=== PATIENT | male | born 1995 | race African-American/Black ===

== ENCOUNTER 2016-07-15 21:29 | Emergency (ER) | payer SELFPAY ==
[~2016-07-15] VITALS: Ht 172.7 cm; Wt 95.0 kg
[~2016-07-15 21:29] MED LIST: RANI150 PO
[2016-07-15 21:30] VITALS: BP 167/118; PULSE 120; RESP 18; TEMP 98.1; O2SAT 99
[2016-07-15] MEDS ORDERED: SODIUM CHLOR 0.9% 1000 ML INJ 1,000 ML IV SCH (21:55)
[2016-07-15] MEDS ORDERED: SODIUM CHLORIDE 0.9% FLUSH 5 ML FLUSH IVF PRN (22:00)
[2016-07-15] MEDS ORDERED: MORPHINE SULFATE 8 MG/ML INJ IV PUSH ONE (22:00)
[2016-07-15] MEDS ORDERED: ALUMINUM/MAGNESIUM/SIMETH 30 ML CUP PO ONE (22:00)
[2016-07-15] MEDS ORDERED: LIDOCAINE VISCOUS 2% SOLN 15 ML UDC PO ONE (22:00)
[2016-07-15] MEDS ORDERED: ONDANSETRON HCL 4 MG/2 ML VIAL IVP ONE (22:00)
[2016-07-15 22:52] LABS: AUTOMATED NEUTROPHIL # 8.2 TH/MM3 (1.8-7.7); BASOPHIL % 0.3 % (0.0-2.0); EOSINOPHIL # 0.1 TH/MM3 (0-0.4); EOSINOPHIL % 0.7 % (0.0-4.0); HEMATOCRIT 51.3 % (39.0-51.0); HEMO FLAGS DIFF FINAL; LYMPH % 17.2 % (9.0-44.0); LYMPHOCYTE # 2.1 TH/MM3 (1.0-4.8); MEAN CELL VOLUME 80.8 FL (80.0-100.0); MEAN CORPUSCULAR HEMOGLOBIN 28.1 PG (27.0-34.0); MEAN CORPUSCULAR HGB CONC 34.8 % (32.0-36.0); MONO % 15.8 % (0.0-8.0); PLATELET COUNT 363 TH/MM3 (150-450); RED BLOOD COUNT 6.35 MIL/MM3 (4.50-5.90); RED CELL DISTRIBUTION WIDTH 14.1 % (11.6-17.2); WHITE BLOOD COUNT 12.4 TH/MM3 (4.0-11.0)
[2016-07-15] MEDS ORDERED: DICY10 PO (22:55)
[2016-07-15] MEDS ORDERED: ZOFR4TAB3 SL (22:55)
--- NOTE | 2016-07-15 22:56 | PD ---
HPI Chief Complaint: GI Complaint Time Seen by Provider: 21:44 Travel History International Travel<30 days: No Contact w/Intl Traveler<30days: No Traveled to known affect area: No History of Present Illness HPI 20-year-old male arrives complaining of abdominal pain and vomiting for about 3 days. His last oral intake prior to onset of nausea and vomiting was pizza which she did not think was spoiled/wasted. He has had hematemesis, speckles of blood in his emesis, for 3 days. He has had no diarrhea. Positive flatus reported. Decreased oral intake reported. It is difficult to find a comfortable position. He denies fever. Evidently a similar episode occurred in the past and resolved spontaneously however was less severe. [facility] Past Medical History Medical History: Denies Significant Hx Blood Disorders: No Cancer: No Cardiovascular Problems: No Diminished Hearing: No Endocrine: No Genitourinary: No Immune Disorder: No Musculoskeletal: Yes Neurologic: No Psychiatric: No Reproductive: No Respiratory: No Tetanus Vaccination: Unknown Influenza Vaccination: No Past Surgical History Other Surgery: Yes (surgery on wrist, growth removed from head) Social History Alcohol Use: Yes (occ) Tobacco Use: Yes (06/19 PPD) Substance Use: Yes (MARIJUANA) Allergies-Medications (Allergen,Severity, Reaction): Coded Allergies: No Known Allergies (Unverified , 07/15/16) Reported Meds & Prescriptions Reported Meds & Active Scripts Active Zofran Odt (Ondansetron Odt) 4 Mg Tab 4 Mg SL Q8HR PRN Bentyl (Dicyclomine HCl) 10 Mg Cap 10 Mg PO TID PRN Review of Systems Except as stated in HPI: all other systems reviewed are Neg Physical Exam Narrative GENERAL: 20-year-old male well-nourished well-developed mild distress SKIN: Warm and dry. HEAD: Atraumatic. Normocephalic. EYES: Pupils equal and round. No scleral icterus. No injection or drainage. ENT: No nasal bleeding or discharge. Mucous membranes pink and moist. NECK: Trachea midline. No JVD. CARDIOVASCULAR: Mild tachycardia regular rhythm.. RESPIRATORY: No accessory muscle use. Clear to auscultation. Breath sounds equal bilaterally. GASTROINTESTINAL: Soft. No tenderness at McBurney's point. Negative Hdz sign. MUSCULOSKELETAL: No obvious deformities. No clubbing. No cyanosis. No edema. NEUROLOGICAL: Awake and alert. No obvious cranial nerve deficits. Motor grossly within normal limits. Normal speech. PSYCHIATRIC: Appropriate mood and affect; insight and judgment normal. Data Data Last Documented VS Vital Signs Date Time Temp Pulse Resp B/P Pulse Ox O2 Delivery O2 Flow Rate FiO2 07/15/16 21:30 98.1 120 18 167/118 99 Vital signs reviewed blood pressure 142/90 at 10:50 PM and heart rate is 98 Orders Complete Blood Count With Diff (07/15/16 21:55) Comprehensive Metabolic Panel (07/15/16 21:55) Lipase (07/15/16 21:55) Iv Access Insert/Monitor (07/15/16 21:55) Ecg Monitoring (07/15/16 21:55) Oximetry (07/15/16 21:55) Ondansetron Inj (Zofran Inj) (07/15/16 22:00) Sodium Chlor 0.9% 1000 Ml Inj (Ns 1000 M (07/15/16 21:55) Sodium Chloride 0.9% Flush (Ns Flush) (07/15/16 22:00) Morphine Inj (Morphine Inj) (07/15/16 22:00) Al-Mag Hy-Si 40-40-4 Mg/Ml Liq (Mag-Al P (07/15/16 22:00) Lidocaine 2% Viscous (Xylocaine 2% Visco (07/15/16 22:00) Labs Laboratory Tests Test 07/15/16 22:00 White Blood Count 12.4 TH/MM3 Red Blood Count 6.35 MIL/MM3 Hemoglobin 17.9 GM/DL Hematocrit 51.3 % Mean Corpuscular Volume 80.8 FL Mean Corpuscular Hemoglobin 28.1 PG Mean Corpuscular Hemoglobin 34.8 % Concent Red Cell Distribution Width 14.1 % Platelet Count 363 TH/MM3 Mean Platelet Volume 9.9 FL Neutrophils (%) (Auto) 66.0 % Lymphocytes (%) (Auto) 17.2 % Monocytes (%) (Auto) 15.8 % Eosinophils (%) (Auto) 0.7 % Basophils (%) (Auto) 0.3 % Neutrophils # (Auto) 8.2 TH/MM3 Lymphocytes # (Auto) 2.1 TH/MM3 Monocytes # (Auto) 2.0 TH/MM3 Eosinophils # (Auto) 0.1 TH/MM3 Basophils # (Auto) 0.0 TH/MM3 CBC Comment DIFF FINAL Differential Comment Sodium Level 133 MEQ/L Potassium Level 3.3 MEQ/L Chloride Level 93 MEQ/L Carbon Dioxide Level 27.4 MEQ/L Anion Gap 13 MEQ/L Blood Urea Nitrogen 17 MG/DL Creatinine 1.29 MG/DL Estimat Glomerular Filtration 84 ML/MIN Rate Random Glucose 102 MG/DL Calcium Level 9.8 MG/DL Total Bilirubin 0.7 MG/DL Aspartate Amino Transf 23 U/L (AST/SGOT) Alanine Aminotransferase 31 U/L (ALT/SGPT) Alkaline Phosphatase 97 U/L Total Protein 9.2 GM/DL Albumin 4.7 GM/DL Lipase 83 U/L [facility] Medical Decision Making Medical Screen Exam Complete: Yes Emergency Medical Condition: Yes Medical Record Reviewed: Yes Differential Diagnosis Constipation, Gastritis, Acute Cholecystitis, Biliary Colic, Pancreatitis, KEE , Hepatitis, Bowel Obstruction, Cystitis, Mesenteric Ischemia, AAA, Appendicitis , Renal Stone/Hydronephrosis, GERD, perforated viscous Narrative Course CBC & BMP Diagram 07/15/16 22:00 LFTs and lipase normal Upon reassessment at 11:45 PM the patient is resting comfortably and feels better, is alert and in no distress. The patients results and examination findings were discussed. The repeat examination is unremarkable and benign. The history, exam, diagnostic testing, and current condition do not suggest any significant pathology to warrant further testing, continued ED treatment, admission, or surgical evaluation at this point. The vital signs have been stable. The patient does not have uncontrollable pain, intractable vomiting, or other significant symptoms. The patient's condition is stable and appropriate for discharge. The patient will pursue further outpatient evaluation with a primary care physician or other designated or consulting physician as indicated in the discharge instructions. The patient expressed understanding and was agreeable with this plan. Diagnosis Primary Impression: Nausea & vomiting Qualified Code: R11.2 - Nausea and vomiting, intractability of vomiting not specified, unspecified vomiting type Additional Impressions: Dehydration Abdominal pain Qualified Code: R10.9 - Abdominal pain, unspecified location Referrals: Primary Care Physician Additional Instructions: You have a choice when it comes to health care, and we are glad that you chose [facility]. Hopefully, we have met your expectations on today's visit. You are welcome to return to [facility] at any time, as we are committed to meeting the health care needs of our community. Med/Other Pt SpecificInfo: Prescription(s) given Scripts Ondansetron Odt (Zofran Odt)4 Mg Tab4 Mg SL Q8HR PRN (Nausea/Vomiting) #10 TAB Ref 0 Prov:Nam Kincaid MD 07/15/16 Dicyclomine (Bentyl)10 Mg Cap10 Mg PO TID PRN (Bowel Management) #20 CAP Ref 0 Prov:Nam Kincaid MD 07/15/16 Disposition: 01 DISCHARGE HOME Condition: Stable Nam Kincaid MD Jul 15, 2016 22:56
[2016-07-15 23:36] LABS: ALKALINE PHOSPHATASE 97 U/L (45-117); TOTAL BILIRUBIN ADULT 0.7 MG/DL (0.2-1.0)
[2016-07-15 23:46] LABS: ALT (GPT) 31 U/L (12-78); ANION GAP 13 MEQ/L (5-15); AST (GOT) 23 U/L (15-37); BICARBONATE 27.4 MEQ/L (21.0-32.0); BLOOD UREA NITROGEN 17 MG/DL (7-18); CHLORIDE 93 MEQ/L (98-107); GLOMERULAR FILTRATION RATE 84 ML/MIN (>89); POTASSIUM 3.3 MEQ/L (3.5-5.1); SODIUM (NA) 133 MEQ/L (136-145)
[2016-07-16] MEDS ORDERED: SODIUM CHLOR 0.9% 1000 ML INJ 1,000 ML IV ONE
[2016-07-16] MEDS ORDERED: PROMETHAZINE INJ 25 MG/ML VIAL IM ONE
[2016-07-16] MEDS ORDERED: MORPHINE SULFATE 8 MG/ML INJ IV PUSH ONE
[2016-07-16] MEDS ORDERED: POTASSIUM CHLORIDE 20 MEQ CONTROLLED RELEASE TAB PO ONE
[2016-07-16 00:34] VITALS: BP 135/81
== END 2016-07-16 00:37 | disposition home or self-care (01) ==
LOC: NEPC 21:29
DX: R11.2 Nausea with vomiting, unspecified (principal); E86.0 Dehydration; R10.9 Unspecified abdominal pain
CPT/HCPCS: 80053; 83690; 85025; 96372; 96374; 96375; 96376; 99284; J2270; J2405; J2550; J7030

== ENCOUNTER 2016-07-16 10:11 | Emergency (ER) | payer OTHER ==
[~2016-07-16] VITALS: Ht 172.7 cm; Wt 98.0 kg
[~2016-07-16 10:11] MED LIST changes: +DICY10 PO; +ZOFR4TAB3 SL
[2016-07-16 10:18] VITALS: BP 133/77; PULSE 99; RESP 20; TEMP 98.6; O2SAT 95
--- NOTE | 2016-07-16 10:51 | PD ---
HPI Chief Complaint: Abdominal Pain Time Seen by Provider: 10:51 Travel History International Travel<30 days: No Contact w/Intl Traveler<30days: No Traveled to known affect area: No History of Present Illness HPI 20-year-old male came to the emergency room with his parents with history of abdominal pain and vomiting and diarrhea. Patient was seen in the emergency room less than 24 hours ago last night for the exact same reason. Blood tests were done and patient was discharged home with a Bentyl and Zofran prescription. Patient did not fill the prescriptions and his symptoms continued so he has returned. He seems very anxious and in distress. Vital signs were stable otherwise. Patient has had these symptoms numerous times in the past and has CAT scans done last year which were within normal limits. [facility] Past Medical History Narrative Medical List of his past medical history as reviewed from the assisted. Medical History: Denies Significant Hx Blood Disorders: No Cancer: No Cardiovascular Problems: No Diminished Hearing: No Endocrine: No Genitourinary: No Immune Disorder: No Musculoskeletal: Yes Neurologic: No Psychiatric: No Reproductive: No Respiratory: No Immunizations Current: Yes Influenza Vaccination: No Past Surgical History Other Surgery: Yes (surgery on wrist, growth removed from head) Social History Alcohol Use: Yes (occ) Tobacco Use: Yes (1/2 PPD; quit month ago) Substance Use: Yes (MARIJUANA) Allergies-Medications (Allergen,Severity, Reaction): Coded Allergies: No Known Allergies (Unverified , 07/16/16) Comments List of his allergies reviewed from the nursing note. Reported Meds & Prescriptions Reported Meds & Active Scripts Active Zofran Odt (Ondansetron Odt) 4 Mg Tab 4 Mg SL Q8HR PRN Bentyl (Dicyclomine HCl) 10 Mg Cap 10 Mg PO TID PRN Narrative Medication List of his home medications reviewed from the nursing note. Review of Systems Except as stated in HPI: all other systems reviewed are Neg Physical Exam Narrative GENERAL: Awake, alert, anxious, moderate distress SKIN: Warm and dry. HEAD: Atraumatic. Normocephalic. EYES: Pupils equal and round. No scleral icterus. No injection or drainage. ENT: No nasal bleeding or discharge. Mucous membranes pink and moist. NECK: Trachea midline. No JVD. CARDIOVASCULAR: Regular rate and rhythm. No murmur appreciated. RESPIRATORY: No accessory muscle use. Clear to auscultation. Breath sounds equal bilaterally. GASTROINTESTINAL: Abdomen soft, non-tender, nondistended. Hepatic and splenic margins not palpable. MUSCULOSKELETAL: No obvious deformities. No clubbing. No cyanosis. No edema. NEUROLOGICAL: Awake and alert. No obvious cranial nerve deficits. Motor grossly within normal limits. Normal speech. PSYCHIATRIC: Appropriate mood and affect; insight and judgment normal. Data Data Last Documented VS Vital Signs Date Time Temp Pulse Resp B/P Pulse Ox O2 Delivery O2 Flow Rate FiO2 07/16/16 14:50 100 Room Air 07/16/16 10:18 98.6 99 20 133/77 Orders Complete Blood Count With Diff (07/16/16 11:26) Comprehensive Metabolic Panel (07/16/16 11:26) Urinalysis - C+S If Indicated (07/16/16 11:26) Iv Access Insert/Monitor (07/16/16 11:26) Ecg Monitoring (07/16/16 11:26) Oximetry (07/16/16 11:26) Sodium Chloride 0.9% Flush (Ns Flush) (07/16/16 11:30) Drug Screen, Random Urine (07/16/16 11:26) Pantoprazole Inj (Protonix Inj) (07/16/16 11:30) Sodium Chlor 0.9% 1000 Ml Inj (Ns 1000 M (07/16/16 11:30) Metoclopramide Inj (Reglan Inj) (07/16/16 11:30) Potassium Chloride (Kcl) (07/16/16 13:00) Urine Culture (07/16/16 14:05) Labs Laboratory Tests Test 07/16/16 07/16/16 11:40 14:05 White Blood Count 14.2 TH/MM3 Red Blood Count 5.67 MIL/MM3 Hemoglobin 15.4 GM/DL Hematocrit 46.4 % Mean Corpuscular Volume 81.8 FL Mean Corpuscular Hemoglobin 27.2 PG Mean Corpuscular Hemoglobin 33.3 % Concent Red Cell Distribution Width 14.2 % Platelet Count 305 TH/MM3 Mean Platelet Volume 9.5 FL Neutrophils (%) (Auto) 78.0 % Lymphocytes (%) (Auto) 10.5 % Monocytes (%) (Auto) 10.9 % Eosinophils (%) (Auto) 0.4 % Basophils (%) (Auto) 0.2 % Neutrophils # (Auto) 11.1 TH/MM3 Lymphocytes # (Auto) 1.5 TH/MM3 Monocytes # (Auto) 1.6 TH/MM3 Eosinophils # (Auto) 0.1 TH/MM3 Basophils # (Auto) 0.0 TH/MM3 CBC Comment DIFF FINAL Differential Comment Sodium Level 133 MEQ/L Potassium Level 3.2 MEQ/L Chloride Level 97 MEQ/L Carbon Dioxide Level 27.2 MEQ/L Anion Gap 9 MEQ/L Blood Urea Nitrogen 16 MG/DL Creatinine 1.23 MG/DL Estimat Glomerular Filtration 89 ML/MIN Rate Random Glucose 98 MG/DL Calcium Level 8.8 MG/DL Total Bilirubin 0.8 MG/DL Aspartate Amino Transf 15 U/L (AST/SGOT) Alanine Aminotransferase 26 U/L (ALT/SGPT) Alkaline Phosphatase 84 U/L Total Protein 7.9 GM/DL Albumin 4.0 GM/DL Urine Color YELLOW Urine Turbidity CLEAR Urine pH 6.0 Urine Specific [place] 1.026 Urine Protein TRACE mg/dL Urine Glucose (UA) NEG mg/dL Urine Ketones 40 mg/dL Urine Occult Blood TRACE Urine Nitrite NEG Urine Bilirubin NEG Urine Urobilinogen LESS THAN 2.0 MG/DL Urine Leukocyte Esterase TRACE Urine RBC 2 /hpf Urine WBC 10 /hpf Urine Squamous Epithelial 1 /hpf Cells Urine Transitional Epithelial <1 /hpf Cells Urine Mucus FEW /lpf Microscopic Urinalysis Comment CULTURE INDICATED Urine Opiates Screen POS Urine Barbiturates Screen NEG Urine Amphetamines Screen NEG Urine Benzodiazepines Screen NEG Urine Cocaine Screen NEG Urine Cannabinoids Screen POS MDM Medical Decision Making Medical Screen Exam Complete: Yes Emergency Medical Condition: Yes Medical Record Reviewed: Yes Differential Diagnosis Chronic abdominal pain, cyclic vomiting syndrome, acute gastroenteritis Narrative Course 1:30 PM patient had the blood test results back and the leukocytosis is slightly worse than last night. Chemistry within normal limit. Awaiting for her urine analysis. 2:15 PM urine analysis was within normal limit. I will discharge him home. Patient has stopped vomiting. Procedures EKG Prior to Arrival: No Diagnosis Primary Impression: Acute gastroenteritis Additional Impression: Chronic abdominal pain Referrals: Primary Care Physician 2 days Additional Instructions: Please follow-up with your primary care in couple days. Please return to the ER if the condition worsens or any other new concerns. Take the medication prescription that has been given to you last night from ER and take those as per the direction. Med/Other Pt SpecificInfo: No Change to Meds Disposition: 01 DISCHARGE HOME Condition: Stable Arielle Arreola MD Jul 16, 2016 10:51 Arielle Arreola MD Jul 16, 2016 10:51
[2016-07-16] MEDS ORDERED: SODIUM CHLOR 0.9% 1000 ML INJ 1,000 ML IV ONE (11:30)
[2016-07-16] MEDS ORDERED: METOCLOPRAMIDE HCL 10 MG/2 ML VIAL IV PUSH ONE (11:30)
[2016-07-16] MEDS ORDERED: PANTOPRAZOLE SODIUM 40 MG VIAL IV PUSH ONE (11:30)
[2016-07-16] MEDS ORDERED: SODIUM CHLORIDE 0.9% FLUSH 5 ML FLUSH IVF PRN (11:30)
[2016-07-16 11:50] LABS: AUTOMATED NEUTROPHIL # 11.1 TH/MM3 (1.8-7.7); BASOPHIL % 0.2 % (0.0-2.0); EOSINOPHIL # 0.1 TH/MM3 (0-0.4); EOSINOPHIL % 0.4 % (0.0-4.0); HEMATOCRIT 46.4 % (39.0-51.0); HEMO FLAGS DIFF FINAL; LYMPH % 10.5 % (9.0-44.0); LYMPHOCYTE # 1.5 TH/MM3 (1.0-4.8); MEAN CELL VOLUME 81.8 FL (80.0-100.0); MEAN CORPUSCULAR HEMOGLOBIN 27.2 PG (27.0-34.0); MEAN CORPUSCULAR HGB CONC 33.3 % (32.0-36.0); MONO % 10.9 % (0.0-8.0); PLATELET COUNT 305 TH/MM3 (150-450); RED BLOOD COUNT 5.67 MIL/MM3 (4.50-5.90); RED CELL DISTRIBUTION WIDTH 14.2 % (11.6-17.2); WHITE BLOOD COUNT 14.2 TH/MM3 (4.0-11.0)
[2016-07-16 12:26] LABS: ALKALINE PHOSPHATASE 84 U/L (45-117); ALT (GPT) 26 U/L (12-78); ANION GAP 9 MEQ/L (5-15); AST (GOT) 15 U/L (15-37); BICARBONATE 27.2 MEQ/L (21.0-32.0); BLOOD UREA NITROGEN 16 MG/DL (7-18); CHLORIDE 97 MEQ/L (98-107); GLOMERULAR FILTRATION RATE 89 ML/MIN (>89); POTASSIUM 3.2 MEQ/L (3.5-5.1); SODIUM (NA) 133 MEQ/L (136-145); TOTAL BILIRUBIN ADULT 0.8 MG/DL (0.2-1.0)
[2016-07-16] MEDS ORDERED: POTASSIUM CHLORIDE 20 MEQ CONTROLLED RELEASE TAB PO ONE (13:00)
[2016-07-16 14:18] LABS: BLOOD, URINE TRACE (NEG); COMMENT (UR) CULTURE INDICATED; CULTURE IF INDICATED CULTURE INDICATED; GLUCOSE,URINE NEG (NEG); KETONE, URINE 40 mg/dL (NEG); MUCUS URINE FEW /lpf (OCC); NITRITE,URINE NEG (NEG); SQUAMOUS EPITHELIAL CELL URINE 1 /hpf (0-5); TRANSITIONAL EPI CELLS, URINE <1 /hpf; URINE COLOR YELLOW (YELLW/STRAW)
[2016-07-16 14:21] LABS: AMPHETAMINE, URINE NEG (NEG); BARBITURATES, URINE NEG (NEG); COCAINE, URINE NEG (NEG)
[2016-07-16 14:50] VITALS: O2SAT 100
== END 2016-07-16 15:00 | disposition home or self-care (01) ==
LOC: NEPC 10:11
DX: K52.9 Noninfective gastroenteritis and colitis, unspecified (principal); R82.90 Unspecified abnormal findings in urine
CPT/HCPCS: 80053; 80307; 81001; 85025; 87086; 96374; 96375; 99284; C9113; J2765; J7030

== ENCOUNTER 2016-10-06 10:22 | Emergency (ER) | payer SELFPAY ==
[~2016-10-06] VITALS: Ht 175.3 cm; Wt 68.0 kg
[~2016-10-06 10:22] MED LIST changes: -RANI150 PO
[2016-10-06 10:25] VITALS: BP 178/87; PULSE 87; RESP 24; O2SAT 97
[2016-10-06] MEDS ORDERED: SODIUM CHLOR 0.9% 1000 ML INJ 1,000 ML IV SCH (10:40)
[2016-10-06 10:41] VITALS: TEMP 98.4
--- NOTE | 2016-10-06 10:43 | PD ---
HPI Chief Complaint: GI Complaint Time Seen by Provider: 10:35 Travel History International Travel<30 days: No Contact w/Intl Traveler<30days: No Traveled to known affect area: No History of Present Illness HPI Pleasant 20-year-old male here with complaint of abdominal pain, nausea and vomiting. Patient states that he has had no 2 days of a burning epigastric discomfort, nausea and vomiting. No associated diarrhea. No hematemesis, fevers or chills. Per chart review patient has been seen here multiple times in the past for similar episodes, laboratory workup has always been negative for hepatobiliary or pancreatic pathology. He has had a positive urine drug screens for cannabinoids however. Patient does note that a warm shower helps his symptomatology. He states that he is still using marijuana and smells of this on exam. PFSH Past Medical History Blood Disorders: No Cancer: No Cardiovascular Problems: No Diminished Hearing: No Endocrine: No Genitourinary: No Immune Disorder: No Musculoskeletal: Yes Neurologic: No Psychiatric: No Reproductive: No Respiratory: No Immunizations Current: Yes Past Surgical History Other Surgery: Yes (surgery on wrist, growth removed from head) Social History Alcohol Use: Yes (occ) Tobacco Use: Yes (/2 PPD; quit month ago) Substance Use: Yes (MARIJUANA) Allergies-Medications (Allergen,Severity, Reaction): Coded Allergies: No Known Allergies (Unverified , 07/16/16) Reported Meds & Prescriptions Reported Meds & Active Scripts Active No Active Prescriptions or Reported Medications Review of Systems Except as stated in HPI: all other systems reviewed are Neg Physical Exam Narrative GENERAL: Well-appearing male in no acute distress SKIN: Focused skin assessment warm/dry. HEAD: Normocephalic. EYES: No scleral icterus. No injection or drainage. ENT: Mucous membranes pink and moist. NECK: Supple CARDIOVASCULAR: Regular rate and rhythm. RESPIRATORY: No accessory muscle use. GASTROINTESTINAL: Abdomen soft, non-tender, nondistended. MUSCULOSKELETAL: Normal gait NEUROLOGICAL: Awake and alert. Normal speech. PSYCHIATRIC: Appropriate mood and affect; insight and judgment normal. Data Data Last Documented VS Vital Signs Date Time Temp Pulse Resp B/P Pulse Ox O2 Delivery O2 Flow Rate FiO2 10/06/16 10:41 98.4 10/06/16 10:25 87 24 178/87 97 Orders Complete Blood Count With Diff (10/06/16 10:40) Comprehensive Metabolic Panel (10/06/16 10:40) Lipase (10/06/16 10:40) Iv Access Insert/Monitor (10/06/16 10:40) Ondansetron Inj (Zofran Inj) (10/06/16 10:45) Pantoprazole Inj (Protonix Inj) (10/06/16 10:45) Sodium Chlor 0.9% 1000 Ml Inj (Ns 1000 M (10/06/16 10:40) Sodium Chloride 0.9% Flush (Ns Flush) (10/06/16 10:45) Ketorolac Inj (Toradol Inj) (10/06/16 10:45) Al-Mag Hy-Si 40-40-4 Mg/Ml Liq (Mag-Al P (10/06/16 10:45) Lidocaine 2% Viscous (Xylocaine 2% Visco (10/06/16 10:45) Labs Laboratory Tests Test 10/06/16 10:56 White Blood Count 12.2 TH/MM3 Red Blood Count 5.80 MIL/MM3 Hemoglobin 16.0 GM/DL Hematocrit 47.0 % Mean Corpuscular Volume 81.0 FL Mean Corpuscular Hemoglobin 27.5 PG Mean Corpuscular Hemoglobin 34.0 % Concent Red Cell Distribution Width 14.5 % Platelet Count 436 TH/MM3 Mean Platelet Volume 9.2 FL Neutrophils (%) (Auto) 86.4 % Lymphocytes (%) (Auto) 8.5 % Monocytes (%) (Auto) 4.9 % Eosinophils (%) (Auto) 0.0 % Basophils (%) (Auto) 0.2 % Neutrophils # (Auto) 10.5 TH/MM3 Lymphocytes # (Auto) 1.0 TH/MM3 Monocytes # (Auto) 0.6 TH/MM3 Eosinophils # (Auto) 0.0 TH/MM3 Basophils # (Auto) 0.0 TH/MM3 CBC Comment DIFF FINAL Differential Comment Sodium Level 132 MEQ/L Potassium Level 3.6 MEQ/L Chloride Level 96 MEQ/L Carbon Dioxide Level 23.6 MEQ/L Anion Gap 12 MEQ/L Blood Urea Nitrogen 19 MG/DL Creatinine 1.74 MG/DL Estimat Glomerular Filtration 60 ML/MIN Rate Random Glucose 139 MG/DL Calcium Level 10.8 MG/DL Total Bilirubin 0.4 MG/DL Aspartate Amino Transf 19 U/L (AST/SGOT) Alanine Aminotransferase 25 U/L (ALT/SGPT) Alkaline Phosphatase 106 U/L Total Protein 9.8 GM/DL Albumin 5.1 GM/DL Lipase 78 U/L [facility] Medical Decision Making Medical Screen Exam Complete: Yes Emergency Medical Condition: Yes Medical Record Reviewed: Yes Differential Diagnosis 20-year-old male with cyclic vomiting history here with complaint of epigastric abdominal pain with nausea and vomiting for the last 2 days. I strong suspicion is for cannabis hyperemesis syndrome versus cyclic vomiting. Differential includes GERD, gastritis, peptic ulcer, pancreatitis or hepatobiliary pathology. Narrative Course Patient placed on monitor, IV established and blood obtained. Patient was given 1 L normal saline bolus, IV Zofran, Toradol, PPI and GI cocktail. He was counseled about his cannabis abuse. CBC, CMP, lipase notable for mild dehydration. Patient had been given IV fluids as above. He was able to tolerate oral challenge and will be discharged home with symptomatic management and encourage of cessation of cannabinoids. Diagnosis Primary Impression: Cannabinoid hyperemesis syndrome Referrals: [facility] as needed Primary Care Physician as needed Additional Instructions: Nausea medications as needed. I encourage you to cut back on your cannabis abuse. Med/Other Pt SpecificInfo: Prescription(s) given Scripts Promethazine (Phenergan)25 Mg Tab25 Mg PO Q6H PRN (Nausea/Vomiting) #10 TAB Ref 0 Prov:Cindi Marrufo MD 10/06/16 Disposition: 01 DISCHARGE HOME Condition: Stable Cindi Marrufo MD Oct 06, 2016 10:42
[2016-10-06] MEDS ORDERED: ONDANSETRON HCL 4 MG/2 ML VIAL IVP ONE (10:45)
[2016-10-06] MEDS ORDERED: SODIUM CHLORIDE 0.9% FLUSH 10 ML FLUSH IV FLUSH PRN (10:45)
[2016-10-06] MEDS ORDERED: PANTOPRAZOLE SODIUM 40 MG VIAL IVP ONE (10:45)
[2016-10-06] MEDS ORDERED: ALUMINUM/MAGNESIUM/SIMETH 30 ML CUP PO ONE (10:45)
[2016-10-06] MEDS ORDERED: KETOROLAC TROMETHAMINE 30 MG/ML (IVP) VIAL IVP ONE (10:45)
[2016-10-06] MEDS ORDERED: LIDOCAINE VISCOUS 2% SOLN 15 ML UDC PO ONE (10:45)
[2016-10-06 11:04] LABS: AUTOMATED NEUTROPHIL # 10.5 TH/MM3 (1.8-7.7); BASOPHIL % 0.2 % (0.0-2.0); HEMO FLAGS DIFF FINAL; LYMPH % 8.5 % (9.0-44.0); MEAN CORPUSCULAR HEMOGLOBIN 27.5 PG (27.0-34.0); MONO % 4.9 % (0.0-8.0); NEUT % 86.4 % (16.0-70.0); PLATELET COUNT 436 TH/MM3 (150-450); RED CELL DISTRIBUTION WIDTH 14.5 % (11.6-17.2); WHITE BLOOD COUNT 12.2 TH/MM3 (4.0-11.0)
[2016-10-06 11:35] LABS: ALKALINE PHOSPHATASE 106 U/L (45-117); ALT (GPT) 25 U/L (12-78); ANION GAP 12 MEQ/L (5-15); AST (GOT) 19 U/L (15-37); BICARBONATE 23.6 MEQ/L (21.0-32.0); BLOOD UREA NITROGEN 19 MG/DL (7-18); CHLORIDE 96 MEQ/L (98-107); GLOMERULAR FILTRATION RATE 60 ML/MIN (>89); POTASSIUM 3.6 MEQ/L (3.5-5.1); SODIUM (NA) 132 MEQ/L (136-145); TOTAL BILIRUBIN ADULT 0.4 MG/DL (0.2-1.0)
[2016-10-06] MEDS ORDERED: PROM25TA5 PO (11:39)
== END 2016-10-06 12:08 | disposition home or self-care (01) ==
LOC: NEPD 10:22
DX: R11.10 Vomiting, unspecified (principal); F12.90 Cannabis use, unspecified, uncomplicated
CPT/HCPCS: 80053; 83690; 85025; 96374; 96375; 99284; C9113; J1885; J2405; J7030

== ENCOUNTER 2016-10-21 15:03 | Emergency (ER) | payer SELFPAY ==
[~2016-10-21] VITALS: Ht 172.7 cm; Wt 87.5 kg
[~2016-10-21 15:03] MED LIST changes: -DICY10 PO; +PROM25TA5 PO; -ZOFR4TAB3 SL
[2016-10-21 15:06] VITALS: BP 152/100; PULSE 76; RESP 24; TEMP 99.1; O2SAT 97
--- NOTE | 2016-10-21 15:11 | PD ---
Physical Exam Date Seen by Provider: October 21, 2016 Time Seen by Provider: 15:10 Narrative 20 year old male presents to the emergency department for evaluation of hematemesis, decreased appetite, insomnia for 4 years, but worse today. Vital signs reviewed. Patient waiting bed placement. Data Data Last Documented VS Vital Signs Date Time Temp Pulse Resp B/P Pulse Ox O2 Delivery O2 Flow Rate FiO2 10/21/16 15:06 99.1 76 24 152/100 97 Room Air [facility] Supervised Visit with DUYEN: Nano Valadez October 21, 2016 15:11
[2016-10-21] MEDS ORDERED: FAMOTIDINE 20 MG/2 ML VIAL IV PUSH ONE (15:30)
[2016-10-21] MEDS ORDERED: SODIUM CHLOR 0.9% 1000 ML INJ 1,000 ML IV SCH (15:30)
[2016-10-21] MEDS ORDERED: SODIUM CHLORIDE 0.9% FLUSH 10 ML FLUSH IV FLUSH PRN (15:30)
[2016-10-21] MEDS ORDERED: ONDANSETRON HCL 4 MG/2 ML VIAL IVP ONE (15:30)
--- NOTE | 2016-10-21 15:36 | PD ---
HPI Chief Complaint: Abdominal Pain Time Seen by Provider: 15:30 Travel History International Travel<30 days: No Contact w/Intl Traveler<30days: No Traveled to known affect area: No History of Present Illness HPI 20-year-old male with history of 4 years of chronic intermittent abdominal pains , presents to the ER with 2 days history of nausea, vomiting, abdominal pains that began last night. He has also had an episode of diarrhea. He denies any fevers or any other issues. They do not know any sick contacts. Modifying Factors: None Associated Signs & Symptoms: Nausea, vomiting, diarrhea, abdominal pain Risk Factors: History of chronic abdominal pains PFSH Past Medical History Blood Disorders: No Cancer: No Cardiovascular Problems: No Diminished Hearing: No Endocrine: No Genitourinary: No Immune Disorder: No Medical other: Yes (gastrointestinal) Musculoskeletal: Yes Neurologic: No Psychiatric: No Reproductive: No Respiratory: No Immunizations Current: Yes Past Surgical History Other Surgery: Yes (surgery on wrist, growth removed from head) Social History Alcohol Use: No Tobacco Use: Yes Substance Use: No Allergies-Medications (Allergen,Severity, Reaction): Coded Allergies: No Known Allergies (Unverified , 10/21/16) Reported Meds & Prescriptions Reported Meds & Active Scripts Active No Active Prescriptions or Reported Medications Review of Systems Except as stated in HPI: all other systems reviewed are Neg Physical Exam Narrative GENERAL: Well-developed young -F[place]ian male patient currently in moderate distress. Awake and oriented 3. SKIN: Focused skin assessment warm/dry. HEAD: Atraumatic. Normocephalic. EYES: Pupils equal and round. No scleral icterus. No injection or drainage. ENT: No nasal bleeding or discharge. Mucous membranes pink and moist. NECK: Trachea midline. No JVD. CARDIOVASCULAR: Regular rate and rhythm. No murmur appreciated. RESPIRATORY: No accessory muscle use. Clear to auscultation. Breath sounds equal bilaterally. GASTROINTESTINAL: Abdomen soft, diffuse upper abdominal tenderness without guarding or rebound, nondistended. Hepatic and splenic margins not palpable. MUSCULOSKELETAL: No obvious deformities. No clubbing. No cyanosis. No edema. NEUROLOGICAL: Awake and alert. No obvious cranial nerve deficits. Motor grossly within normal limits. Normal speech. PSYCHIATRIC: Appropriate mood and affect; insight and judgment normal. Data Data Last Documented VS Vital Signs Date Time Temp Pulse Resp B/P Pulse Ox O2 Delivery O2 Flow Rate FiO2 5/6/17 15:45 99 Room Air 10/21/16 15:06 99.1 76 24 152/100 Orders Complete Blood Count With Diff (10/21/16 15:30) Comprehensive Metabolic Panel (10/21/16 15:30) Lipase (10/21/16 15:30) Iv Access Insert/Monitor (10/21/16 15:30) Ecg Monitoring (10/21/16 15:30) Oximetry (10/21/16 15:30) Ondansetron Inj (Zofran Inj) (10/21/16 15:30) Sodium Chlor 0.9% 1000 Ml Inj (Ns 1000 M (10/21/16 15:30) Sodium Chloride 0.9% Flush (Ns Flush) (10/21/16 15:30) Famotidine Inj (Pepcid Inj) (10/21/16 15:30) Influenzae A/B Antigen (10/21/16 15:30) Labs Laboratory Tests Test 10/21/16 15:48 White Blood Count 9.7 TH/MM3 Red Blood Count 4.53 MIL/MM3 Hemoglobin 12.5 GM/DL Hematocrit 37.7 % Mean Corpuscular Volume 83.2 FL Mean Corpuscular Hemoglobin 27.6 PG Mean Corpuscular Hemoglobin 33.2 % Concent Red Cell Distribution Width 14.3 % Platelet Count 386 TH/MM3 Mean Platelet Volume 8.7 FL Neutrophils (%) (Auto) 81.3 % Lymphocytes (%) (Auto) 12.5 % Monocytes (%) (Auto) 5.8 % Eosinophils (%) (Auto) 0.0 % Basophils (%) (Auto) 0.4 % Neutrophils # (Auto) 7.9 TH/MM3 Lymphocytes # (Auto) 1.2 TH/MM3 Monocytes # (Auto) 0.6 TH/MM3 Eosinophils # (Auto) 0.0 TH/MM3 Basophils # (Auto) 0.0 TH/MM3 CBC Comment DIFF FINAL Differential Comment Sodium Level 138 MEQ/L Potassium Level 3.4 MEQ/L Chloride Level 99 MEQ/L Carbon Dioxide Level 30.5 MEQ/L Anion Gap 9 MEQ/L Blood Urea Nitrogen 5 MG/DL Creatinine 0.81 MG/DL Estimat Glomerular Filtration 144 ML/MIN Rate Random Glucose 85 MG/DL Calcium Level 8.7 MG/DL Total Bilirubin 0.2 MG/DL Aspartate Amino Transf 20 U/L (AST/SGOT) Alanine Aminotransferase 20 U/L (ALT/SGPT) Alkaline Phosphatase 75 U/L Total Protein 6.2 GM/DL Albumin 3.2 GM/DL Lipase 59 U/L MDM Medical Decision Making Medical Screen Exam Complete: Yes Emergency Medical Condition: Yes Medical Record Reviewed: Yes Interpretation(s) Laboratory Tests Test 10/21/16 15:48 Hemoglobin 12.5 GM/DL (13.0-17.0) Hematocrit 37.7 % (39.0-51.0) Neutrophils (%) (Auto) 81.3 % (16.0-70.0) Neutrophils # (Auto) 7.9 TH/MM3 (1.8-7.7) Potassium Level 3.4 MEQ/L (3.5-5.1) Blood Urea Nitrogen 5 MG/DL (7-18) Total Protein 6.2 GM/DL (6.4-8.2) Albumin 3.2 GM/DL (3.4-5.0) Lipase 59 U/L (73-393) Differential Diagnosis Nausea, vomiting, diarrhea, abdominal painsgastroenteritis versus gastritis versus acute on chronic abdominal pain versus dehydration versus metabolic issues Narrative Course Abdomen is benign and I do not suspect an acute intra-abdominal process. His lab work shows no signs of significant leukocytosis, but able issues, or significant dehydration. He was given IV fluids and Zofran in the ER. On reevaluation at 5 PM, he is feeling improved. At this point, my plan would be to release the patient would follow-up to primary care physician. Return for any worsening in symptoms as necessary. The plan has been discussed with him and he states understanding. Diagnosis Primary Impression: Nausea & vomiting Med/Other Pt SpecificInfo: Prescription(s) given Scripts Ondansetron Odt (Zofran Odt)4 Mg Tab4 Mg SL Q6HR PRN (Nausea/Vomiting) #7 TAB Ref 0 Prov:Laurence Sevilla MD 10/21/16 Famotidine (Pepcid)40 Mg Tab40 Mg PO BID #14 TAB Ref 0 Prov:Laurence Sevilla MD 10/21/16 Disposition: 01 DISCHARGE HOME Condition: Stable Laurence Sevilla MD October 21, 2016 15:36
[2016-10-21 15:45] VITALS: O2SAT 99
[2016-10-21 16:30] LABS: AUTOMATED NEUTROPHIL # 7.9 TH/MM3 (1.8-7.7); BASOPHIL % 0.4 % (0.0-2.0); HEMATOCRIT 37.7 % (39.0-51.0); HEMO FLAGS DIFF FINAL; LYMPH % 12.5 % (9.0-44.0); LYMPHOCYTE # 1.2 TH/MM3 (1.0-4.8); MEAN CELL VOLUME 83.2 FL (80.0-100.0); MEAN CORPUSCULAR HEMOGLOBIN 27.6 PG (27.0-34.0); MEAN CORPUSCULAR HGB CONC 33.2 % (32.0-36.0); MONO % 5.8 % (0.0-8.0); NEUT % 81.3 % (16.0-70.0); PLATELET COUNT 386 TH/MM3 (150-450); RED BLOOD COUNT 4.53 MIL/MM3 (4.50-5.90); RED CELL DISTRIBUTION WIDTH 14.3 % (11.6-17.2); WHITE BLOOD COUNT 9.7 TH/MM3 (4.0-11.0)
[2016-10-21 16:51] LABS: ALT (GPT) 20 U/L (12-78); ANION GAP 9 MEQ/L (5-15); AST (GOT) 20 U/L (15-37); BICARBONATE 30.5 MEQ/L (21.0-32.0); BLOOD UREA NITROGEN 5 MG/DL (7-18); CHLORIDE 99 MEQ/L (98-107); GLOMERULAR FILTRATION RATE 144 ML/MIN (>89); POTASSIUM 3.4 MEQ/L (3.5-5.1); SODIUM (NA) 138 MEQ/L (136-145)
[2016-10-21 16:57] LABS: ALKALINE PHOSPHATASE 75 U/L (45-117); TOTAL BILIRUBIN ADULT 0.2 MG/DL (0.2-1.0)
[2016-10-21] MEDS ORDERED: FAMO1TAB73 PO (17:17)
[2016-10-21] MEDS ORDERED: ZOFR4TAB3 SL (17:17)
== END 2016-10-21 17:28 | disposition home or self-care (01) ==
LOC: NEPD 15:03
DX: R11.2 Nausea with vomiting, unspecified (principal); R19.7 Diarrhea, unspecified; Z72.0 Tobacco use
CPT/HCPCS: 80053; 83690; 85025; 87804; 96361; 96374; 96375; 99284; J2405; J7030

== ENCOUNTER 2016-12-17 21:44 | Emergency (ER) | payer SELFPAY ==
[~2016-12-17] VITALS: Ht 172.7 cm; Wt 90.0 kg
[~2016-12-17 21:44] MED LIST changes: +FAMO1TAB73 PO; -PROM25TA5 PO; +ZOFR4TAB3 SL
[2016-12-17 22:03] VITALS: BP 170/67; PULSE 56; RESP 18; O2SAT 100
[2016-12-17 22:09] VITALS: O2SAT 100
--- NOTE | 2016-12-17 22:23 | RADRPT ---
EXAM DATE/TIME: 12/17/2016 22:17 [facility] COMPARISON: CHEST SINGLE AP, March 13, 2014, 11:27. INDICATIONS : Evaluate for free air Abdomen pain MEDICAL HISTORY : None. SURGICAL HISTORY : None. ENCOUNTER: Initial ACUITY: 1 day PAIN SCORE: 4/10 LOCATION: chest FINDINGS: A single view of the chest demonstrates the lungs to be symmetrically aerated without evidence of mas s, infiltrate or effusion. The cardiomediastinal contours are unremarkable. Osseous structures are intact. CONCLUSION: No acute disease. Jasbir Manriquez MD on December 17, 2016 at 22:21 Board Certified Radiologist. This report was verified electronically.
[2016-12-17] MEDS ORDERED: KETOROLAC TROMETHAMINE 30 MG/ML (IVP) VIAL IV PUSH ONE (22:30)
[2016-12-17] MEDS ORDERED: ONDANSETRON HCL 4 MG/2 ML VIAL IV ONE (22:30)
[2016-12-17] MEDS ORDERED: SODIUM CHLOR 0.9% 1000 ML INJ 1,000 ML IV ONE (22:30)
[2016-12-17 22:40] LABS: AUTOMATED NEUTROPHIL # 7.7 TH/MM3 (1.8-7.7); BASOPHIL % 0.3 % (0.0-2.0); HEMATOCRIT 40.9 % (39.0-51.0); HEMO FLAGS DIFF FINAL; LYMPH % 9.2 % (9.0-44.0); LYMPHOCYTE # 0.8 TH/MM3 (1.0-4.8); MEAN CELL VOLUME 82.5 FL (80.0-100.0); MEAN CORPUSCULAR HEMOGLOBIN 26.6 PG (27.0-34.0); MEAN CORPUSCULAR HGB CONC 32.3 % (32.0-36.0); MONO % 4.2 % (0.0-8.0); NEUT % 86.3 % (16.0-70.0); PLATELET COUNT 291 TH/MM3 (150-450); RED BLOOD COUNT 4.96 MIL/MM3 (4.50-5.90); RED CELL DISTRIBUTION WIDTH 14.3 % (11.6-17.2); WHITE BLOOD COUNT 8.9 TH/MM3 (4.0-11.0)
[2016-12-17 22:57] LABS: ALT (GPT) 22 U/L (12-78); ANION GAP 6 MEQ/L (5-15); AST (GOT) 17 U/L (15-37); BICARBONATE 31.3 MEQ/L (21.0-32.0); BLOOD UREA NITROGEN 7 MG/DL (7-18); CHLORIDE 103 MEQ/L (98-107); GLOMERULAR FILTRATION RATE 127 ML/MIN (>89); MAGNESIUM 1.9 MG/DL (1.5-2.5); POTASSIUM 3.5 MEQ/L (3.5-5.1); SODIUM (NA) 140 MEQ/L (136-145)
[2016-12-17 22:59] LABS: ALKALINE PHOSPHATASE 80 U/L (45-117); TOTAL BILIRUBIN ADULT 0.4 MG/DL (0.2-1.0)
--- NOTE | 2016-12-17 22:59 | PD ---
HPI Chief Complaint: Abdominal Pain Time Seen by Provider: 22:02 Travel History International Travel<30 days: No Contact w/Intl Traveler<30days: No Traveled to known affect area: No History of Present Illness HPI The patient is a 21 year old male who presents to the [facility] emergency department with a history of chronic abdominal pain over the last 2 years it recurred yesterday in the morning. The patient reports that he's had nausea and vomiting associated with this. He reports that he's had nausea and vomiting 8 today. He denies having any diarrhea. He cannot recall when he last moved his bowels. The patient is brought in by ambulance services. The patient has difficulty staying awake to answer questions. The patient reports that he has not used any marijuana in the last 2 weeks. The patient has difficulty recalling what type of workup he's had done in the past related to his abdominal pain. 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 He reports that he has had blood work done and imaging of his belly in the past. On review of systems, the patient denies any recent fevers, cough, congestion, neck pain, chest pain, shortness of breath, urinary symptoms, or neurologic symptoms. 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 Other Surgery: Yes (surgery on wrist, growth removed from head) Social History Alcohol Use: No Tobacco Use: Yes (4 CIGS PD) Substance Use: No Allergies-Medications (Allergen,Severity, Reaction): Coded Allergies: No Known Allergies (Unverified , 12/17/16) Reported Meds & Prescriptions Reported Meds & Active Scripts Active No Active Prescriptions or Reported Medications Review of Systems Except as stated in HPI: all other systems reviewed are Neg General / Constitutional: No: Fever Eyes: No: Visual changes HENT: No: Headaches Cardiovascular: No: Chest Pain or Discomfort Respiratory: No: Shortness of Breath Gastrointestinal: Positive: Nausea, Vomiting, Abdominal Pain, No: Diarrhea, Hematemesis, Hematochezia, Constipation, Changes in Bowel Habits, Indigestion, Loss of Appetite Genitourinary: No: Dysuria Musculoskeletal: No: Pain Skin: No Rash Neurologic: No: Weakness Psychiatric: No: Depression Endocrine: No: Polydipsia Hematologic/Lymphatic: No: Easy Bruising Physical Exam Narrative General: The patient is a well-developed well-nourished male in no acute distress. The patient is sleeping soundly on my arrival to the room. Head and Neck exam: Head is normocephalic atraumatic. Eyes: EOMI, pupils are equal round and reactive to light. Nose: Midline septum with pink mucous membranes Mouth: Dentition unremarkable. Moist mucus membranes. Posterior oropharynx is not erythematous. No tonsillar hypertrophy. Uvula midline. Airway patent. Neck: No palpable lymphadenopathy. No nuchal rigidity. No thyromegaly. Cardiovascular: Regular rate and rhythm without murmurs, gallops, or rubs. No pulse deficit to the extremities. Lungs: Clear to auscultation bilaterally. No wheezes, rhonchi, or rales. Abdomen: Soft, with reported midepigastric abdominal discomfort on palpation, no other tenderness on palpation of the other quadrants of the abdomen No guarding, rebound, or rigidity. Negative Scott sign. No tenderness on palpation of McBurney's point. Normal bowel sounds are audible. Extremities: No clubbing, cyanosis, or edema. 2+ pulses in all 4 extremities. No calf tenderness on palpation. Back: No costovertebral angle tenderness to palpation. Neurologic Exam: Grossly nonfocal. Skin Exam: No rash noted. Intact skin that is warm and dry. Data Data Last Documented VS Vital Signs Date Time Temp Pulse Resp B/P Pulse Ox O2 Delivery O2 Flow Rate FiO2 12/18/16 00:39 69 16 140/76 98 12/17/16 22:09 Room Air Orders Complete Blood Count With Diff (12/17/16 22:05) Comprehensive Metabolic Panel (12/17/16 22:05) Lipase (12/17/16 22:05) Urinalysis - C+S If Indicated (12/17/16 22:05) Magnesium (Mg) (12/17/16 22:05) Chest, Single Ap (12/17/16 22:05) Iv Access Insert/Monitor (12/17/16 22:05) Ecg Monitoring (12/17/16 22:05) Oximetry (12/17/16 22:05) Ondansetron Inj (Zofran Inj) (12/17/16 22:30) Sodium Chlor 0.9% 1000 Ml Inj (Ns 1000 M (12/17/16 22:30) Ketorolac Inj (Toradol Inj) (12/17/16 22:30) Sodium Chlor 0.9% 1000 Ml Inj (Ns 1000 M (12/18/16 00:15) Pantoprazole Inj (Protonix Inj) (12/18/16 00:15) Labs Laboratory Tests Test 12/17/16 22:16 White Blood Count 8.9 TH/MM3 Red Blood Count 4.96 MIL/MM3 Hemoglobin 13.2 GM/DL Hematocrit 40.9 % Mean Corpuscular Volume 82.5 FL Mean Corpuscular Hemoglobin 26.6 PG Mean Corpuscular Hemoglobin 32.3 % Concent Red Cell Distribution Width 14.3 % Platelet Count 291 TH/MM3 Mean Platelet Volume 9.7 FL Neutrophils (%) (Auto) 86.3 % Lymphocytes (%) (Auto) 9.2 % Monocytes (%) (Auto) 4.2 % Eosinophils (%) (Auto) 0.0 % Basophils (%) (Auto) 0.3 % Neutrophils # (Auto) 7.7 TH/MM3 Lymphocytes # (Auto) 0.8 TH/MM3 Monocytes # (Auto) 0.4 TH/MM3 Eosinophils # (Auto) 0.0 TH/MM3 Basophils # (Auto) 0.0 TH/MM3 CBC Comment DIFF FINAL Differential Comment Sodium Level 140 MEQ/L Potassium Level 3.5 MEQ/L Chloride Level 103 MEQ/L Carbon Dioxide Level 31.3 MEQ/L Anion Gap 6 MEQ/L Blood Urea Nitrogen 7 MG/DL Creatinine 0.90 MG/DL Estimat Glomerular Filtration 127 ML/MIN Rate Random Glucose 116 MG/DL Calcium Level 9.3 MG/DL Magnesium Level 1.9 MG/DL Total Bilirubin 0.4 MG/DL Aspartate Amino Transf 17 U/L (AST/SGOT) Alanine Aminotransferase 22 U/L (ALT/SGPT) Alkaline Phosphatase 80 U/L Total Protein 7.5 GM/DL Albumin 4.1 GM/DL Lipase 106 U/L [facility] Medical Decision Making Medical Screen Exam Complete: Yes Emergency Medical Condition: Yes Medical Record Reviewed: Yes Differential Diagnosis Cyclic vomiting syndrome, versus gastroparesis, versus gastritis, versus peptic ulcer disease, versus acid reflux, versus malingering, versus drug-seeking behavior, versus somatizations Narrative Course During the course of the patients emergency department visit, the patients history, examination, and differential diagnosis were reviewed with the patient. The patient had IV access obtained and blood work sent for analysis. The patient was placed on a quality assurance monitor final with oximetry and blood pressure monitoring. The patient's electronic medical record was reviewed. The patient last had a CT scan of the abdomen and pelvis done in July 2016 that was unremarkable. The patient has also undergone an ultrasound of his gallbladder to further evaluate that was unremarkable. As the patient's abdominal examination is benign, shows no signs of an acute abdomen, additional imaging is not indicated currently. The patient was initially provided normal saline 1 L IV fluid bolus, Zofran 4 mg IV, Toradol 15 mg IV. The patients laboratory studies were reviewed and remarkable for a white count of 8.9, hemoglobin 13.2, platelets 291 with 86.3 neutrophils, CMP is remarkable for a glucose of 116, lipase 106. The patient was given a second liter of normal saline IV fluids, Protonix 40 mg IV. The patient is resting comfortably and feels better, is alert and in no distress. The patients results and examination findings were discussed with the patient. The repeat examination is unremarkable and benign. The history, exam, diagnostic testing, and current condition do not suggest any significant pathology to warrant further testing, continued ED treatment, admission, or surgical evaluation at this point. The vital signs have been stable. The patient does not have uncontrollable pain, intractable vomiting, or other significant symptoms. The patient's condition is stable and appropriate for discharge. The patient will pursue further outpatient evaluation with a primary care physician or other designated or consulting physician as indicated in the discharge instructions. The patient expressed understanding and was agreeable with this plan. Diagnosis Primary Impression: Abdominal pain Qualified Code: R10.13 - Epigastric pain Additional Impression: Nausea & vomiting Qualified Code: R11.2 - Non-intractable vomiting with nausea, unspecified vomiting type Referrals: Linh Kang MD 1 week Primary Care Physician 2 days Patient Instructions: Abdominal Pain (ED), Acute Nausea and Vomiting (ED), General Instructions Med/Other Pt SpecificInfo: Prescription(s) given Scripts Famotidine (Pepcid)40 Mg Tab40 Mg PO BID #14 TAB Ref 0 Prov:Reshma Valero MD 12/18/16 Ondansetron Odt (Zofran Odt)4 Mg Tab4 Mg SL Q6HR PRN (Nausea/Vomiting) #7 TAB Ref 0 Prov:Reshma Valero MD 12/18/16 Disposition: 01 DISCHARGE HOME Condition: Stable Reshma Valero MD Dec 17, 2016 22:59
[2016-12-18] MEDS ORDERED: PANTOPRAZOLE SODIUM 40 MG VIAL IV PUSH ONE (00:15)
[2016-12-18] MEDS ORDERED: SODIUM CHLOR 0.9% 1000 ML INJ 1,000 ML IV ONE (00:15)
[2016-12-18 00:39] VITALS: BP 140/76; PULSE 69; RESP 16; O2SAT 98
[2016-12-18] MEDS ORDERED: ZOFR4TAB3 SL (01:00)
[2016-12-18] MEDS ORDERED: FAMO1TAB73 PO (01:00)
== END 2016-12-18 03:44 | disposition home or self-care (01) ==
LOC: NEPC 21:44
DX: R10.13 Epigastric pain (principal); R11.2 Nausea with vomiting, unspecified; F17.210 Nicotine dependence, cigarettes, uncomplicated
CPT/HCPCS: 71010; 80053; 83690; 83735; 85025; 96374; 96375; 99284; C9113; J1885; J2405; J7030

== ENCOUNTER 2017-02-07 15:22 | Emergency (ER) | payer SELFPAY ==
[~2017-02-07] VITALS: Ht 172.7 cm; Wt 90.0 kg
[2017-02-07] MEDS ORDERED: IOHEXOL 350 MG/ML 10 ML VIAL (for RAD DIAG) IVCONTRAST ONE (15:23)
[2017-02-07 15:47] VITALS: BP 129/70; PULSE 100; RESP 24; TEMP 97.9; O2SAT 96
--- NOTE | 2017-02-07 15:51 | PD ---
Physical Exam Date Seen by Provider: Feb 07, 2017 Time Seen by Provider: 15:49 Narrative 21 yo male here for abdominal pain. Seen at a different hospital yesterday. Cannot keep anything down. Came from ambulance to triage. Pain is 10/10. Diarrhea. No other medical complains. Vitals are stable in triage. Awaiting Bed placement. Data Data Last Documented VS Vital Signs Date Time Temp Pulse Resp B/P (MAP) Pulse Ox O2 Delivery O2 Flow Rate FiO2 02/07/17 15:47 97.9 100 24 129/70 (89) 96 Room Air [facility] Medical Record Reviewed: Yes Supervised Visit with DUYEN: No Ian Hall Feb 07, 2017 15:50
[2017-02-07 17:31] VITALS: BP 122/79; PULSE 79; RESP 18; O2SAT 97
[2017-02-07 17:36] LABS: BASOPHIL % 0.4 % (0.0-2.0); EOSINOPHIL % 0.1 % (0.0-4.0); HEMATOCRIT 47.9 % (39.0-51.0); HEMO FLAGS DIFF FINAL; LYMPH % 18.2 % (9.0-44.0); LYMPHOCYTE # 1.7 TH/MM3 (1.0-4.8); MEAN CELL VOLUME 84.6 FL (80.0-100.0); MEAN CORPUSCULAR HEMOGLOBIN 28.1 PG (27.0-34.0); MEAN CORPUSCULAR HGB CONC 33.2 % (32.0-36.0); MONO % 7.3 % (0.0-8.0); PLATELET COUNT 312 TH/MM3 (150-450); RED BLOOD COUNT 5.66 MIL/MM3 (4.50-5.90); WHITE BLOOD COUNT 9.4 TH/MM3 (4.0-11.0)
[2017-02-07 18:06] LABS: ALT (GPT) 31 U/L (12-78); ANION GAP 9 MEQ/L (5-15); AST (GOT) 20 U/L (15-37); BICARBONATE 28.6 MEQ/L (21.0-32.0); BLOOD UREA NITROGEN 15 MG/DL (7-18); CHLORIDE 100 MEQ/L (98-107); GLOMERULAR FILTRATION RATE 84 ML/MIN (>89); POTASSIUM 3.5 MEQ/L (3.5-5.1); SODIUM (NA) 138 MEQ/L (136-145)
[2017-02-07 18:09] LABS: ALKALINE PHOSPHATASE 80 U/L (45-117); TOTAL BILIRUBIN ADULT 0.6 MG/DL (0.2-1.0)
--- NOTE | 2017-02-07 18:18 | PD ---
HPI Chief Complaint: GI Complaint Time Seen by Provider: 18:03 Travel History International Travel<30 days: No Contact w/Intl Traveler<30days: No Traveled to known affect area: No History of Present Illness HPI 21yo M with no significant PMH presents to the ED with c/o abdominal pain for 3 days. States it has been coming and going for 3 years. +NBNB vomiting. Denies any fever, chest pain, sob, testicular pain, dysuria, diarrhea. Pt states he went to [facility] yesterday and they didnt do anything. States that he has never had any imaging for this pain. PFSH Past Medical History Blood Disorders: No Cancer: No Cardiovascular Problems: No Diminished Hearing: No Endocrine: No Gastrointestinal Disorders: Yes (GASTRITIS) Genitourinary: No Immune Disorder: No Musculoskeletal: Yes Neurologic: No Psychiatric: No Reproductive: No Respiratory: No Immunizations Current: Yes Past Surgical History Other Surgery: Yes (surgery on wrist, growth removed from head) Social History Alcohol Use: No Tobacco Use: Yes (1 ppd) Substance Use: Yes (marijuana) Allergies-Medications (Allergen,Severity, Reaction): Coded Allergies: No Known Allergies (Unverified , 02/07/17) Reported Meds & Prescriptions Reported Meds & Active Scripts Active No Active Prescriptions or Reported Medications Review of Systems Except as stated in HPI: all other systems reviewed are Neg Physical Exam Narrative GENERAL: 21yo M in mild distress. SKIN: Focused skin assessment warm/dry. HEAD: Atraumatic. Normocephalic. CARDIOVASCULAR: Regular rate and rhythm. No murmur appreciated. RESPIRATORY: No accessory muscle use. Clear to auscultation. Breath sounds equal bilaterally. GASTROINTESTINAL: Abdomen soft, diffuse ttp. No rebound tenderness or guarding. MUSCULOSKELETAL: No obvious deformities. No clubbing. No cyanosis. No edema. NEUROLOGICAL: Awake and alert. No obvious cranial nerve deficits. Motor grossly within normal limits. Normal speech. PSYCHIATRIC: Appropriate mood and affect; insight and judgment normal. Data Data Last Documented VS Vital Signs Date Time Temp Pulse Resp B/P (MAP) Pulse Ox O2 Delivery O2 Flow Rate FiO2 02/07/17 20:00 79 18 130/90 (103) 99 Room Air 02/07/17 15:47 97.9 Orders Orders Complete Blood Count With Diff (02/07/17 15:51) Comprehensive Metabolic Panel (02/07/17 15:51) Lipase (02/07/17 15:51) Urinalysis - C+S If Indicated (02/07/17 18:14) Ct Abd/Pel W Iv Contrast(Rout) (02/07/17 ) Ketorolac Inj (Toradol Inj) (02/07/17 18:30) Ondansetron Inj (Zofran Inj) (02/07/17 18:30) Iohexol 350 Inj (Omnipaque 350 Inj) (02/07/17 15:23) Labs Laboratory Tests Test 02/07/17 17:25 02/07/17 20:45 White Blood Count 9.4 TH/MM3 Red Blood Count 5.66 MIL/MM3 Hemoglobin 15.9 GM/DL Hematocrit 47.9 % Mean Corpuscular Volume 84.6 FL Mean Corpuscular Hemoglobin 28.1 PG Mean Corpuscular Hemoglobin Concent 33.2 % Red Cell Distribution Width 14.0 % Platelet Count 312 TH/MM3 Mean Platelet Volume 8.9 FL Neutrophils (%) (Auto) 74.0 % Lymphocytes (%) (Auto) 18.2 % Monocytes (%) (Auto) 7.3 % Eosinophils (%) (Auto) 0.1 % Basophils (%) (Auto) 0.4 % Neutrophils # (Auto) 7.0 TH/MM3 Lymphocytes # (Auto) 1.7 TH/MM3 Monocytes # (Auto) 0.7 TH/MM3 Eosinophils # (Auto) 0.0 TH/MM3 Basophils # (Auto) 0.0 TH/MM3 CBC Comment DIFF FINAL Differential Comment Blood Urea Nitrogen 15 MG/DL Creatinine 1.28 MG/DL Random Glucose 100 MG/DL Total Protein 8.3 GM/DL Albumin 4.5 GM/DL Calcium Level 9.4 MG/DL Alkaline Phosphatase 80 U/L Aspartate Amino Transf (AST/SGOT) 20 U/L Alanine Aminotransferase (ALT/SGPT) 31 U/L Total Bilirubin 0.6 MG/DL Sodium Level 138 MEQ/L Potassium Level 3.5 MEQ/L Chloride Level 100 MEQ/L Carbon Dioxide Level 28.6 MEQ/L Anion Gap 9 MEQ/L Estimat Glomerular Filtration Rate 84 ML/MIN Lipase 95 U/L Urine Color YELLOW Urine Turbidity CLEAR Urine pH 6.5 Urine Specific [place] GREATER THAN 1.050 Urine Protein 30 mg/dL Urine Glucose (UA) NEG mg/dL Urine Ketones 10 mg/dL Urine Occult Blood NEG Urine Nitrite NEG Urine Bilirubin NEG Urine Urobilinogen 2.0 MG/DL Urine Leukocyte Esterase NEG Urine RBC 9 /hpf Urine WBC 1 /hpf Urine Squamous Epithelial Cells 2 /hpf Urine Bacteria RARE /hpf Urine Mucus MANY /lpf Microscopic Urinalysis Comment CULT NOT INDICATED MDM Medical Decision Making Medical Screen Exam Complete: Yes Emergency Medical Condition: Yes Differential Diagnosis Gastritis vs. PUD vs. colitis vs. chronic pain Narrative Course 21yo M with periumbilical pain for 3 days. Pt states he has been having similar intermittent pain for 3 years. Labs reviewed, no leukocytosis. Lipase normal. CMP unremarkable. CTa/p unremarkable. Pt given toradol, zofran and reevaluated at bedside. UA unremarkable. Pt feels better and has been sleeping in the ED. Return precautions given. Diagnosis Primary Impression: Abdominal pain Qualified Codes: R10.33 - Periumbilical pain Patient Instructions: General Instructions Departure Forms: Tests/Procedures Additional Instructions: Please follow up with your PMD in 3-7 days. Return to the ED if symptoms worsen. Med/Other Pt SpecificInfo: Prescription(s) given Scripts Acetaminophen (Tylenol) 325 Mg Tab 650 MG PO Q6H Y for PAIN SCALE 1 TO 4 for 5 Days, TAB 0 Refills Prov: CardozoXi DO 02/07/17 Disposition: 01 DISCHARGE HOME Condition: Stable Xi Cardozo DO Feb 07, 2017 18:18
[2017-02-07] MEDS ORDERED: KETOROLAC TROMETHAMINE 30 MG/ML (IVP) VIAL IV PUSH ONE (18:30)
[2017-02-07] MEDS ORDERED: ONDANSETRON HCL 4 MG/2 ML VIAL IV PUSH ONE (18:30)
--- NOTE | 2017-02-07 19:30 | RADRPT ---
EXAM DATE/TIME: 02/07/2017 19:07 [facility] COMPARISON: CT ABDOMEN & PELVIS W CONTRAST, October 03, 2012, 23:23. INDICATIONS : Diffuse abdominal pain with vomiting. IV CONTRAST: 70 cc Omnipaque 350 (iohexol) IV ORAL CONTRAST: No oral contrast ingested. RADIATION DOSE: 9.96 CTDIvol (mGy) MEDICAL HISTORY : Gastritis. SURGICAL HISTORY : None. ENCOUNTER: Initial ACUITY: 1 day PAIN SCALE: 10/10 LOCATION: All quadrants. TECHNIQUE: Volumetric scanning of the abdomen and pelvis was performed. Using automated exposure control and ad justment of the mA and/or kV according to patient size, radiation dose was kept as low as reasonably achievable to obtain optimal diagnostic quality images. DICOM format image data is available electro nically for review and comparison. FINDINGS: LOWER LUNGS: The visualized lower lungs are clear. LIVER: Homogeneous density without lesion. There is no dilation of the biliary tree. No calcified gallston es. SPLEEN: Normal size without lesion. PANCREAS: Within normal limits. KIDNEYS: Normal in size and shape. There is no mass, stone or hydronephrosis. ADRENAL GLANDS: Within normal limits. VASCULAR: There is no aortic aneurysm. BOWEL/MESENTERY: The stomach, small bowel, and colon demonstrate no acute abnormality. There is no free intraperitone al air or fluid. The appendix is nondilated. No inflammatory changes. ABDOMINAL WALL: Within normal limits. RETROPERITONEUM: There is no lymphadenopathy. BLADDER: No wall thickening or mass. REPRODUCTIVE: Within normal limits. INGUINAL: There is no lymphadenopathy or hernia. MUSCULOSKELETAL: Within normal limits for patient age. No new or significant changes compared to 2013. CONCLUSION: Unremarkable and stable CT scan of the abdomen/pelvis compared to 2012. Leonidas Crow MD on February 07, 2017 at 19:25 Board Certified Radiologist. This report was verified electronically.
[2017-02-07 20:00] VITALS: BP 130/90; PULSE 79; RESP 18; O2SAT 99
[2017-02-07 21:29] LABS: BACTERIA, URINE RARE /hpf; BLOOD, URINE NEG (NEG); COMMENT (UR) CULT NOT INDICATED; CULTURE IF INDICATED CULT NOT INDICATED; GLUCOSE,URINE NEG (NEG); KETONE, URINE 10 mg/dL (NEG); MUCUS URINE MANY /lpf (OCC); NITRITE,URINE NEG (NEG); PH, URINE 6.5 (5.0-8.5); SQUAMOUS EPITHELIAL CELL URINE 2 /hpf (0-5); URINE COLOR YELLOW (YELLW/STRAW)
[2017-02-07] MEDS ORDERED: TYLE325T PO (21:59)
== END 2017-02-07 22:25 | disposition home or self-care (01) ==
LOC: NEPD 15:22
DX: R10.33 Periumbilical pain (principal); F17.200 Nicotine dependence, unspecified, uncomplicated
CPT/HCPCS: 74177; 80053; 81001; 83690; 85025; 96374; 96375; 99285; J1885; J2405; Q9967